=== PATIENT | male | born 1955 | race Caucasian/White ===

== ENCOUNTER → 2017-11-08 | Emergency (ER) | payer OTHER ==
[~2017-11-08] VITALS: Ht 180.3 cm; Wt 86.2 kg
[~2017-11-08] MED LIST: ABILIFY5 MG; ACIDOPHILUS1 EAC3 PO; AMOX1TAB12 PO; ASA325 M1; ASPIR 8181 MG; ATIVAN0.5 M1; BIAXIN250 MG PO; CLINDAMYCIN HC300 MG PO; CLONAZEPAM0.5 MG; CLORAZEPATE D3.75 MG; CODE1TAB37 PO; INTESTINEX680 M1 PO; KETOROLAC60 MG/2 M1 IM; LAMICTAL100 MG; LITHIUM CARBON450 MG; MOTRIN IB200 MG; REMERON15 MG; TOPROL XL50 M1; VOLTAREN100 GM; ZOLOFT100 MG; ZOLOFT25 MG; [UNRECOGNIZED DRUG - OTHER] PO
== END | disposition home or self-care (01) ==
LOC: ER 09:20
DX: K08.89 Other specified disorders of teeth and supporting structures (principal)

== ENCOUNTER → 2017-11-08 | Emergency (ER) | payer OTHER ==
[~2017-11-08] VITALS: Ht 180.3 cm; Wt 86.2 kg
== END | disposition home or self-care (01) ==
LOC: ER 23:02
DX: K08.89 Other specified disorders of teeth and supporting structures (principal); K04.7 Periapical abscess without sinus

== ENCOUNTER → 2017-11-08 | Emergency (ER) | payer OTHER ==
[~2017-11-08] VITALS: Ht 180.3 cm; Wt 86.2 kg
== END | disposition home or self-care (01) ==
LOC: ER 02:08
DX: K08.89 Other specified disorders of teeth and supporting structures (principal); M27.69 Other endosseous dental implant failure

== ENCOUNTER 2017-11-09 20:29 | Emergency (ER) | payer OTHER ==
[~2017-11-09] VITALS: Ht 180.3 cm; Wt 86.2 kg
== END 2017-11-09 21:30 | disposition home or self-care (01) ==
LOC: ER 20:29
DX: K08.89 Other specified disorders of teeth and supporting structures (principal)

== ENCOUNTER → 2017-11-15 | Emergency (ER) | payer OTHER ==
[~2017-11-15] VITALS: Ht 180.3 cm; Wt 88.0 kg
== END | disposition left against medical advice (07) ==
LOC: ER 18:20
DX: Z53.20 Procedure and treatment not carried out because of patient's decision for unspecified reasons (principal)

== ENCOUNTER → 2019-04-13 | Emergency (ER) | payer OTHER ==
[~2019-04-13] VITALS: Ht 180.3 cm; Wt 81.6 kg
[~2019-04-13] MED LIST changes: +CLONAZEPAM2 MG; +CYMBALTA60 MG
== END | disposition left against medical advice (07) ==
LOC: ER 23:53 → CPU-OBS 23:54 → ER 23:54
DX: R07.89 Other chest pain (principal); K21.9 Gastro-esophageal reflux disease without esophagitis
CPT/HCPCS: G0378; G0379; 93005

== ENCOUNTER 2019-05-08 10:52 | Emergency (ER) | payer OTHER ==
[~2019-05-08] VITALS: Ht 175.3 cm; Wt 81.6 kg
[2019-05-08] MEDS ORDERED: AMBIEN CR12.5 MG (12:53)
[2019-05-08] MEDS ORDERED: CLORAZEPATE DIP15 MG (12:54)
== END 2019-05-08 15:22 | disposition home or self-care (01) ==
LOC: ER 10:52
DX: M51.26 Other intervertebral disc displacement, lumbar region (principal); M54.5 Low back pain

== ENCOUNTER 2020-01-11 07:03 | Emergency (ER) | payer OTHER ==
[~2020-01-11] VITALS: Ht 180.3 cm; Wt 79.8 kg
[~2020-01-11 07:03] MED LIST changes: +AMBIEN CR12.5 MG; +CLORAZEPATE DIP15 MG
[2020-01-11] MEDS ORDERED: CITALOPRAM HBR20 MG PO (07:15)
[2020-01-11] MEDS ORDERED: TOPROL XL100 M1 PO (07:16)
== END 2020-01-11 12:25 | disposition home or self-care (01) ==
LOC: ER 07:03
DX: M54.5 Low back pain (principal)

== ENCOUNTER 2020-01-12 07:16 | Emergency (ER) | payer OTHER ==
[~2020-01-12] VITALS: Ht 180.3 cm; Wt 79.4 kg
[~2020-01-12 07:16] MED LIST changes: +CITALOPRAM HBR20 MG PO; +TOPROL XL100 M1 PO
== END 2020-01-12 08:31 | disposition home or self-care (01) ==
LOC: ER 07:16
DX: M54.5 Low back pain (principal)